=== PATIENT | male | born 1950 | race Caucasian/White ===

== ENCOUNTER 2017-11-18 10:57 | Day surgery (SDC) | payer OTHER, MEDICARE ==
[2017-11-18] MEDS ORDERED: LR 1,000 ML IV ONE (11:12)
[2017-11-18] MEDS ORDERED: LIDOCAINE 1% 2 ML INJ ID PRN (11:12)
[2017-11-18] MEDS ORDERED: PROPOFOL 200 MG/20 ML VIAL ONE (11:13)
[2017-11-18] MEDS ORDERED: ceFAZolin 2 GM/DEXTROSE 100 ML IV ONE (11:20)
--- NOTE | 2017-11-18 11:20 | PDHPUP ---
History & Physical Update H&P update statement: This history and physical update is based on an assessment of the patient which was completed after admission or registration (within 24 hours), but prior to the surgery/procedure. H&P update: H&P reviewed & patient examined, no change in patient's condition since H&P completed
[2017-11-18] MEDS ORDERED: BUPIVACAINE 0.5% 30 ML SDV ONE ×2 (11:22→11:39)
--- NOTE | 2017-11-18 11:27 | POSTOPPROG ---
Post Op Note Date of Operation: 11/18/17 Surgeon: Fareed Man Meter Shop Superintendent: none Anesthesiologist: yoana rizvi Anesthesia: GET(General Endotracheal) Pre-op Diagnosis: Left carpal and cubital tunnel syndrome Post-op Diagnosis: same Indication: pain and numbness Procedure: cubital and carpal tunnel decompressions Findings: compression Inf/Abcess present in the surg proc area at time of surgery?: No Depth: Deep Incisional (Fascial) EBL: Minimal Total fluids administered: 600cc Complications: None
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
[2017-11-18] MEDS ORDERED: ONDANSETRON 4 MG/2 ML VIAL IVP PRN (11:31)
[2017-11-18] MEDS ORDERED: ACETAMINOPHEN 500 MG TAB PO PRN (11:31)
[2017-11-18] MEDS ORDERED: HYDROmorphONE/DILAUDID 2 MG/ML INJ IVP PRN (11:31)
[2017-11-18] MEDS ORDERED: oxyCODONE IR 5 MG TAB PO PRN (11:31)
[2017-11-18] MEDS ORDERED: NALOXONE HCL 0.4 MG/ML INJ IVP PRN (11:31)
[2017-11-18] MEDS ORDERED: ALBUTEROL 3 ML DEYVIAL IH PRN (11:31)
[2017-11-18] MEDS ORDERED: MIDAZOLAM 2 MG/2 ML VIAL IVP ONE (11:31)
[2017-11-18] MEDS ORDERED: DEXAMETHASONE 4 MG/ML VIAL IVP PRN (11:31)
[2017-11-18] MEDS ORDERED: MIDAZOLAM 2 MG/2 ML VIAL ONE (11:33)
[2017-11-18] MEDS ORDERED: LIDOCAINE 1% 300 MG/30 ML SDV ONE (11:39)
[2017-11-18] MEDS ORDERED: fentaNYL 100 MCG/2 ML INJ ONE ×2 (11:49→13:13)
[2017-11-18] MEDS ORDERED: DEXAMETHASONE 4 MG/ML VIAL ONE (11:51)
[2017-11-18] MEDS ORDERED: ONDANSETRON 4 MG/2 ML VIAL ONE (11:51)
--- NOTE | 2017-11-18 12:47 | POSTANESTH ---
Post Anesthetic Evaluation Cardiovascular Status: Normal, Stable Respiratory Status: Normal, Stable Level of Consciousness/Mental Status: Can Participate in Eval, Moderately Sleepy Pain Control: Adequate, Prn Tx Ordered Nausea/Vomiting Control: Adequate, Prn Tx Ordered Complications Possibly Related to Anesthesia: None Noted
--- NOTE | 2017-11-18 13:08 | GOP ---
DATE OF OPERATION: 11/18/2017 SURGEON: Fareed Man MD PREOPERATIVE DIAGNOSIS: Left cubital and carpal tunnel syndrome. POSTOPERATIVE DIAGNOSIS: Left cubital and carpal tunnel syndrome. PROCEDURE PERFORMED: Left endoscopic carpal tunnel release, left ulnar nerve decompression with ante rior transposition. FINDINGS: INDICATIONS: Persistent numbness in median and ulnar nerve distribution and positive EMG and nerve c onduction studies. DESCRIPTION OF PROCEDURE: Under general anesthesia, the patient's left arm was prepped and draped in usual fashion and arm tourniquet applied at 250 mmHg. Proximal and distal portals were made above a nd below the transverse carpal ligament. The endoscopic cannula was inserted through the carpal tunn el. Transverse carpal ligament was well visualized and released longitudinally using a reverse knife. The completeness release was assured by palpation with a probe as well as palpation of t he cannula and removal. Portals were irrigated with 0.5% plain Marcaine for postoperative pain contr ol. Skin closed with horizontal mattress sutures of 5-0 Prolene. Attention was turned to the left e lbow medial aspect and a C-shaped incision was made centered over the medial epicondyle and extending proximally and distally for about 2 inches in each direction. Skin flap was elevated anteriorly. T he branch of the medial antebrachial cutaneous nerve in the operative area was mobilized and reflecte d. The ulnar nerve was identified well proximal to the medial epicondylar groove and was followed up through the arcade of [place] and then down through the cubital retinacular ligament medial epicon dylar groove and into the cubital tunnel. The flexor carpi ulnaris muscle belly was released for a s hort distance, also providing a nice transition for the nerve from the arm into forearm and then dario y takeoff branches were freed up. Nerve was transposed anteriorly and a subcutaneous tunnel was made by suturing subcutaneous tissue to flexor forearm muscle fascia. The adequacy of that tunnel was te sted by digital palpation. Subcutaneous tissue closure was not needed as there was minimal subcutane ous tissue. Skin and subcutaneous tissue were closed in a single layer using horizontal mattress sut ures of 5-0 Prolene. A bulky soft pressure dressing was applied at both levels and then a fiberglass above-elbow splint holding the wrist in neutral position, elbow in about 80 degrees of flexion was a pplied and held in place with an Ray bandage. Tourniquet deflation resulted in immediate pinking of the digits. He was brought to the recovery area where detailed postoperative instructions were given prior to discharge. A prescription for [place] and Keflex was provided. He had been given 2 g of Anc ef prior to commencement of surgery. Followup arrangements in the office for 1 week postop for dress ing and suture removal and remobilization exercises. /[id number]/MODL
[2017-11-18] MEDS: fentaNYL 100 MCG/2 ML INJ IVP PRN ×2 (13:16→13:31)
[2017-11-18] MEDS ORDERED: oxyCODONE IR 5 MG TAB ONE (14:36)
[2017-11-18 15:40] VITALS: BP 127/94
== END 2017-11-18 15:55 | disposition home or self-care (01) ==
LOC: FSGY 10:57
PROVIDERS: ATTEND Specialist
DX: G56.02 Carpal tunnel syndrome, left upper limb (principal); G56.22 Lesion of ulnar nerve, left upper limb
CPT/HCPCS: J0690; J1100; J2250; J2405; J2704; J3010